=== PATIENT | male | born 1945 | race Caucasian/White ===

== ENCOUNTER 2023-05-21 08:22 | Emergency (ER) | payer OTHER, SELFPAY ==
[2023-05-21 08:24] VITALS: BP 162/90; PULSE 86; RESP 24; TEMP 36.6; O2SAT 94; BMI 23.7
--- NOTE | 2023-05-21 08:30 | XR_ITS ---
The [address] [address] Patient Name: ASIA ANGEL MRN: [id number] date: 1945 Sex: M Assigned Patient Location: ED.MAIN Current Patient Location: ED.MAIN Accession/Order Number: [id number] Exam Date: 05/21/2023 08:50 Report Date: 05/21/2023 09:31 At the request of: DANIEL ZIMMERMAN Procedure: XR chest 2V EXAM: CHEST 2 VIEWS HISTORY: sob TECHNIQUE: PA and lateral views chest. COMPARISON: None. FINDINGS: There is significant pleural-parenchymal thickening and scarring at the lung apices. There is left lung volume loss with cysts masslike consolidation at the left suprahilar region, and patchy opacities at the left lower lobe. Mild right basilar atelectasis. No dependent effusion. No pneumothorax. There is mild tracheomegaly with tortuous trachea. There is aortic atherosclerosis. Heart size within normal limits. XR/XR chest 2V IMPRESSION: 1. Significant biapical pleural-parenchymal thickening and scarring. Masslike left suprahilar consolidation could be from pneumonia but associated left lung volume loss suggests a fibrotic process. Underlying mass/neoplasm not excluded. There are no prior comparison studies. Correlate with patient's history. Follow-up chest contrast chest CT as clinically indicated. 2. Patchy pneumonitis at the left lower lobe. Electronically authenticated by: KENDELL ARNOLD Date: 05/21/2023 09:31
--- NOTE | 2023-05-21 08:34 | ED.GENADUL1 ---
HPI - General Adult General Chief complaint: Shortness of Breath/Dyspnea Stated complaint: GENERAL WEAKNESS Time Seen by Provider: 05/21/23 08:30 Source: patient Mode of arrival: ambulance Limitations: no limitations History of Present Illness HPI narrative: Patient is a Extremely pleasant 77-year-old male who is presenting to the Emergency Room by ambulance with chief complaint of shortness of breath this morning more than usual. Patient states every morning he wakes up he is a little short of breath, he felt more short of breath this morning. Patient has bilateral lung cancer. Patient has had 2 out of 3 globes taken out of his right lung, patient's left lung had chemotherapy and radiation. Patient has no fever or chills. No recent sick contacts. No Covid contacts. No recent traveling out of state or country last month or so. No dull pain, nausea or vomiting. Patient does not wear action at home and does not want to. Patient has chronic obstructive pulmonary disease history. Patient states he feels better at this time, patient only had oxygen applied by EMS staff. He does not wear action at home. He does have a albuterol aerosol machine at home. Patient states the shortness of breath slowly gotten worse this morning, since it was different than his normal, he came to the Emergency Room. PPatient has never been admitted to the hospital for chronic obstructive pulmonary disease her breathing issues since 2010 when he last had his lung surgery/chemotherapy/radiation. . All systems are negative except as noted/marked. All systems reviewed and otherwise negative. . Nurses note and vital signs reviewed and patient is not hypoxic. General: The patient appears well and in no apparent distress. Patient is resting comfortably on cart. Patient is not toxic, lethargic, or listless. Low BMI, para chest, Skin: Warm, dry, no pallor noted. There is no rash noted. No petechiae, purpura. Patient has several Band-Aids on his head, Patient just had a [facility], from small wound that is treating, no secondary signs of infection. Head: Normocephalic, atraumatic Eye: Normal conjunctiva, no drainage, EOMI. PERRL Ears, Nose, Mouth, and Throat: oral mucosa is moist. Nares patent. Mouth without vesicles. Cardiovascular: Regular Rate and Rhythm, no murmur, gallop, rub Respiratory: Patient is in no distress, no accessory muscle use, lungs are clear to auscultation, no wheezing, rales or rhonchi Back: non-tender, no CVA tenderness bilaterally to percussion. No CT LS midline pain GI: soft, no tenderness to palpation, no masses appreciated. No rebound, guarding, or rigidity noted. No flank pain bilateral, No distention Musculoskeletal: Patient has full range of motion of all of the extremities, no motor, sensory, or focal neurological deficits Neurological: A&O x3, normal speech Psychiatric: Cooperative Related Data Previous Rx's Medication Instructions Recorded prednisone 50 mg tablet 50 mg PO DAILY 3 days #3 tabs 05/21/23 Allergies Allergy/AdvReac Type Severity Reaction Status Date / Time No Known Drug Allergies Allergy Verified 05/21/23 08:29 PFSH [facility] Social History Smoking status: Former smoker Exam Constitutional Vital Signs, click to edit/add: Last Vital Signs Temp 97.8 F 05/21/23 08:24 Pulse 82 05/21/23 09:07 Resp 12 05/21/23 09:07 BP 162/90 H 05/21/23 08:24 Pulse Ox 98 05/21/23 09:07 O2 Del Method Nasal Cannula 05/21/23 09:07 O2 Flow Rate 1 05/21/23 09:07 Course Vital Signs Vital signs: Vital Signs Temperature 97.8 F 05/21/23 08:24 Pulse Rate 86 05/21/23 08:24 Respiratory Rate 24 05/21/23 08:24 Blood Pressure 162/90 H 05/21/23 08:24 Pulse Oximetry 94 L 05/21/23 08:24 Oxygen Delivery Method Room Air 05/21/23 08:24 Temperature 97.8 F 05/21/23 08:24 Pulse Rate 82 05/21/23 09:07 Respiratory Rate 12 05/21/23 09:07 Blood Pressure 162/90 H 05/21/23 08:24 Pulse Oximetry 98 05/21/23 09:07 Oxygen Delivery Method Nasal Cannula 05/21/23 09:07 Oxygen Delivery Flow Rate 1 05/21/23 09:07 Medical Decision Making MDM Narrative Medical decision making narrative: Patient feels much better with oxygen. Patient was also given a DuoNeb breathing treatment which helped him feel better as well. Patient was given a short prescription of prednisone, he will take the next dose tomorrow. Patient was given a copy of his x-ray report, patient has multiple possibilities radiology read by the radiologist on patient's x-ray report. He will use aerosol treatments every 4 hours while awake. Patient follow-up with PCP, no questions at discharge. I spent 10 minutes talking the patient at discharge discussing his lung cancer, treatments, patient was very nice very thankful for help today. Patient is aware to take his next dose of present is on tomorrow, along with his aerosols. Patient will [facility] with [facility] and [facility] specialist as needed. Patient just had CAT/PET scans done in the beginning of March on his lungs, and they found nothing new, he is not concerned about the x-ray report were discussed at bedside. Lab Data Lab results reviewed: Yes I reviewed the patient's lab results Labs: Lab Results 05/21/23 05/21/23 Range/Units 08:35 09:06 WBC 8.5 (4.0-11.0) 10^3/uL RBC 4.36 L (4.70-6.10) 10^6/uL Hgb 13.5 L (14.0-18.0) g/dL Hct 40.3 L (42.0-54.0) % MCV 92.4 (80.0-94.0) fL MCH 31.0 (25.9-34.0) pg MCHC 33.5 (29.9-35.2) g/dL RDW 13.3 (11.0-15.0) % Plt Count 218 (150-450) 10^3/uL MPV 8.2 L (9.5-13.5) fL Seg Neuts % (Manual) 90.0 Lymphocytes % (Manual) 5.0 L (20.5-60.0) % Monocytes % (Manual) 4.0 (1.7-12.0) % Eosinophils % (Manual) 1.0 (0.9-7.0) % Basophils % (Manual) 0.0 L (0.2-2.0) % Neutrophils # (Manual) 7.65 H (1.4-6.5) 10^3/uL Lymphocytes # (Manual) 0.42 L (1.20-3.80) 10^3/uL Monocytes # (Manual) 0.34 (0.30-0.80) 10^3/uL Eosinophils # (Manual) 0.08 (0.00-0.70) 10^3/uL Basophils # (Manual) 0.00 (0.00-0.10) 10^3/uL Sodium 136 (136-145) mmol/L Potassium 4.3 (3.5-5.1) mmol/L Chloride 102 (98-107) mmol/L Carbon Dioxide 25.9 (21.0-32.0) mmol/L Anion Gap 12.4 BUN 21.0 H (7.0-18.0) mg/dL Creatinine 1.58 H (0.70-1.30) mg/dL Est GFR ( Amer) 52 L (>=60) Est GFR (Non-Af Amer) 43 L (>=60) BUN/Creatinine Ratio 13.3 Glucose 96 (74-106) mg/dL Calcium 9.5 (8.5-10.1) mg/dL Troponin I High Sens 20.6 (4.0-76.1) pg/mL NT-Pro-B Natriuret Pep 2285.0 H* (<=1800.0) pg/mL SARS-CoV-2 (PCR) Negative (NEGATIVE) ECG Data Attestation: I personally reviewed and interpreted this ECG as follows: (EKG interpretation. Normal sinus rhythm at 87 beats a minute. Artifact noted. Normal axis deviation. No acute ST elevation, no acute ectopy. QTC of 422.) Discharge Plan Discharge Chief Complaint: Shortness of Breath/Dyspnea Clinical Impression: Dyspnea, COPD (chronic obstructive pulmonary disease) Patient Disposition: Home, Self-Care Condition: Fair Prescriptions / Home Meds: New prednisone 50 mg tablet 50 mg PO DAILY 3 Days Qty: 3 0RF Instructions: COPD (Chronic Obstructive Pulmonary Disease) (ED), Dyspnea (ED) Additional Instructions: X-ray report was given 2. 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 Use your aerosol machine every 4 hours while awake today. Take your next dose of prednisone tomorrow. Any acute concerns or significant shortness of breath or any other acute concerns return to Emergency Room. Stand Alone Forms: Portal Instructions Referrals: Physician,Non-Staff, MD [Primary Care Provider] - 1 week
[2023-05-21 08:57] LABS: Hematocrit 40.3 % (42.0-54.0); Hemoglobin 13.5 g/dL (14.0-18.0); Mean Corpuscular HGB Conc 33.5 g/dL (29.9-35.2); Mean Corpuscular Volume 92.4 fL (80.0-94.0); Mean Platelet Volume 8.2 fL (9.5-13.5); Platelet Count 218 10^3/uL (150-450); Red Blood Count 4.36 10^6/uL (4.70-6.10); White Blood Count 8.5 10^3/uL (4.0-11.0)
[2023-05-21 09:00] LABS: Red Cell Distribution Width 13.3 % (11.0-15.0)
[2023-05-21] MEDS: IPRATROPIUM/ALBUTEROL SULFATE 3 ML AMPUL.NEB IH (09:05)
[2023-05-21 09:07] VITALS: PULSE 82; RESP 12; O2SAT 98
--- NOTE | 2023-05-21 09:08 | RESP.RT ---
placed on room air
[2023-05-21] MEDS: METHYLPREDNISOLONE SOD SUCC PF 125 MG/2 ML VIAL IVP (09:17)
[2023-05-21 09:22] LABS: Anion Gap 12.4; BUN Creatinine Ratio 13.3; Calcium 9.5 mg/dL (8.5-10.1); Carbon Dioxide 25.9 mmol/L (21.0-32.0); Chloride 102 mmol/L (98-107); Estimated GFR (African America 52 (>=60); Estimated GFR (Non-African Ame 43 (>=60); Glucose 96 mg/dL (74-106); Potassium 4.3 mmol/L (3.5-5.1); Sodium 136 mmol/L (136-145); Troponin I High Sensitivity 20.6 pg/mL (4.0-76.1)
[2023-05-21 09:30] LABS: Eosinophils Absolute Manual 0.08 10^3/uL (0.00-0.70); Lymphocytes Absolute Manual 0.42 10^3/uL (1.20-3.80); Monocytes Absolute Manual 0.34 10^3/uL (0.30-0.80); Segmented Neut Absolute Manual 7.65 10^3/uL (1.4-6.5)
[2023-05-21 09:34] LABS: SARS-CoV-2 Ag NEGATIVE (NEGATIVE)
--- NOTE | 2023-05-21 10:00 | ECG_ITS ---
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
--- NOTE | 2023-05-21 10:10 | PC.NURSE ---
walk study completed without oxygen at this time SpO2 remains at 96%. dr hicks informed
[2023-05-21 15:59] LABS: SARS-CoV-2 NAA NOT DETECTED (NOT DETECTE)
== END 2023-05-21 11:13 | disposition home or self-care (01) ==
PROVIDERS: Emergency Provider Emergency Medicine
DX: R06.00 Dyspnea, unspecified (principal); J44.9 Chronic obstructive pulmonary disease, unspecified; Z90.2 Acquired absence of lung [part of]; Z85.828 Personal history of other malignant neoplasm of skin; Z87.891 Personal history of nicotine dependence; Z85.118 Personal history of other malignant neoplasm of bronchus and lung; Z20.822 Contact with and (suspected) exposure to COVID-19
CPT/HCPCS: 36415; 71046; 80048; 83880; 84484; 85027; 87635; 87811; 93005; 94640; 96374; 99285; J2930

== ENCOUNTER 2023-07-20 13:15 | Emergency (ER) | payer OTHER, SELFPAY ==
[2023-07-20] VITALS (39 sets, daily range): BP systolic 147; BP diastolic 89; PULSE 60–113; RESP 20; TEMP 36.9; O2SAT 91–100; BMI 21.8
--- NOTE | 2023-07-20 13:17 | ED_ITS ---
HPI - General Adult General Chief complaint: Shortness of Breath/Dyspnea Stated complaint: URTI/ GENERAL WEAKNESS Time Seen by Provider: 07/20/23 13:15 History of Present Illness HPI narrative: Patient is an 78-year-old male with a remote history of lung cancer who is currently be treated [facility], presents to the ER for several week history of weakness, cough and congestion, general malaise. He denies fevers, chest pain. No sputum production, vomiting. He was placed on oxygen by EMS with improvement and states he was given something for nausea. He states he is not able to see his [facility] doctor for another week which prompted him to call 911 and come to the ER. He has a history of multiple lobectomy to the right lung, he believes the right middle and right lower lobes. He was seen in this emergency department for similar symptoms at the end of April of this year. He had a chest x-ray with multiple abnormal findings, he was not able to follow-up with the [facility] as he states they could not get him in. He is not currently being treated for any pulmonary conditions. Related Data Previous Rx's Medication Instructions Recorded prednisone 50 mg tablet 50 mg PO DAILY 3 days #3 tabs 05/21/23 Allergies Allergy/AdvReac Type Severity Reaction Status Date / Time No Known Drug Allergies Allergy Verified 05/21/23 08:29 Review of Systems ROS Constitutional Denies: fever or chills Ears, nose, mouth, and throat Reports: nasal congestion; Denies: throat pain Cardiovascular Denies: chest pain Respiratory Reports: shortness of breath and cough Gastrointestinal Reports: nausea; Denies: vomiting or diarrhea Genitourinary Denies: painful urination Musculoskeletal Denies: back pain Integumentary/Breast Denies: rash Neurological Denies: headache Endocrine Denies: excessive urination PFSH PFSH Social History Smoking status: Former smoker Exam Narrative Exam Narrative: Gen.: Awake, alert, in no distress Head: Normocephalic, atraumatic ENT: Moist mucous membranes Respiratory: No respiratory distress, diminished lung sounds in the right upper and middle lobes, no wheezing noted Cardio: Regular rate and rhythm Extremities: Moves extremities equally, no pedal edema Psych: Normal mood and affect Neuro: No focal neuro deficit Skin: Warm, dry, intact Constitutional Vital Signs, click to edit/add: Last Vital Signs Temp 98.4 F 07/20/23 13:15 Pulse 113 H 07/20/23 13:15 Resp 20 07/20/23 13:15 BP 147/89 H 07/20/23 13:15 Pulse Ox 98 07/20/23 13:15 O2 Del Method Nasal Cannula 07/20/23 13:15 O2 Flow Rate 2 07/20/23 13:15 Course Vital Signs Vital signs: Vital Signs Temperature 98.4 F 07/20/23 13:15 Pulse Rate 113 H 07/20/23 13:15 Respiratory Rate 20 07/20/23 13:15 Blood Pressure 147/89 H 07/20/23 13:15 Pulse Oximetry 98 07/20/23 13:15 Oxygen Delivery Method Nasal Cannula 07/20/23 13:15 Oxygen Delivery Flow Rate 2 07/20/23 13:15 Temperature 98.4 F 07/20/23 13:15 Pulse Rate 113 H 07/20/23 13:15 Respiratory Rate 20 07/20/23 13:15 Blood Pressure 147/89 H 07/20/23 13:15 Pulse Oximetry 98 07/20/23 13:15 Oxygen Delivery Method Nasal Cannula 07/20/23 13:15 Oxygen Delivery Flow Rate 2 07/20/23 13:15 Medical Decision Making MDM Narrative Medical decision making narrative: Patient found to have elevated troponin and BNP. Clinically he does not have any evidence of peripheral edema. He was sent for CT angio of the chest which has multiple abnormalities consistent with pulmonary artery stenosis, multiple areas of suspected metastasis. Based on elevated troponin and 3 weeks of symptoms, patient will require transfer to tertiary care facility for non-STEMI. Patient treated with heparin bolus and drip, reevaluated by attending physician and he is agreeable to transfer to [facility]. Patient accepted by hospitalist. Stable at this time. Critical care time 35 minutes Medical Records Medical records reviewed: Yes I reviewed the patient's medical records Lab Data Lab results reviewed: Yes I reviewed the patient's lab results Labs: Lab Results 07/20/23 07/20/23 Range/Units 13:44 15:48 WBC 11.7 H (4.0-11.0) 10^3/uL RBC 4.11 L (4.70-6.10) 10^6/uL Hgb 12.9 L (14.0-18.0) g/dL Hct 37.2 L (42.0-54.0) % MCV 90.5 (80.0-94.0) fL MCH 31.4 (25.9-34.0) pg MCHC 34.7 (29.9-35.2) g/dL RDW 13.1 (11.0-15.0) % Plt Count 223 (150-450) 10^3/uL MPV 8.7 L (9.5-13.5) fL Neut % (Auto) 81.4 H (43.0-75.0) % Lymph % (Auto) 8.2 L (20.5-60.0) % [place] % (Auto) 8.4 (1.7-12.0) % Eos % (Auto) 0.9 (0.9-7.0) % Baso % (Auto) 0.8 (0.2-2.0) % Neut # (Auto) 9.5 H (1.4-6.5) 10^3/uL Lymph # (Auto) 1.0 L (1.2-3.8) 10^3/uL [place] # (Auto) 1.0 H (0.3-0.8) 10^3/uL Eos # (Auto) 0.1 (0.0-0.7) 10^3/uL Baso # (Auto) 0.1 (0.0-0.1) 10^3/uL Abs Immat Gran (auto) 0.04 H (0.00-0.03) 10^3/uL Imm/Tot Granulo (auto) 0.3 (0.0-0.5) % PT 11.4 (9.0-11.6) sec INR 1.08 APTT 33.8 (22.3-36.2) sec VBG pH 7.463 H (7.330-7.430) VBG pCO2 36.5 L (40.0-52.0) mmHg Sodium 135 L (136-145) mmol/L Potassium 3.6 (3.5-5.1) mmol/L Chloride 99 (98-107) mmol/L Carbon Dioxide 24.5 (21.0-32.0) mmol/L Anion Gap 15.1 BUN 25.0 H (7.0-18.0) mg/dL Creatinine 1.58 H (0.70-1.30) mg/dL Est GFR ( Amer) 52 L (>=60) Est GFR (Non-Af Amer) 43 L (>=60) BUN/Creatinine Ratio 15.8 Glucose 102 (74-106) mg/dL Calcium 10.3 H (8.5-10.1) mg/dL Total Bilirubin 0.9 (0.2-1.0) mg/dL AST 15 (15-37) U/L ALT 16 (16-63) U/L Alkaline Phosphatase 74 (46-116) U/L Troponin I High Sens 208.9 H* 225.8 H* (4.0-76.1) pg/mL NT-Pro-B Natriuret Pep 94747.0 H* (<=1800.0) pg/mL Total Protein 6.4 (6.4-8.2) g/dL Albumin 2.8 L (3.4-5.0) g/dL Globulin 3.6 g/dL Albumin/Globulin Ratio 0.[address] scan - chest: Attestation: I have reviewed the pertinent imaging results. Radiologist's impression: Procedure: CT angio chest EXAM: CT angio chest 07/20/2023. TECHNIQUE: 3 mm sections were obtained from the thoracic inlet through the diaphragm following administration of intravenous contrast. Coronal and sagittal reconstructed images were also obtained. HISTORY: Weakness, abnormal CXR COMPARISON: None. FINDINGS: The gallbladder is surgically absent. Nodular thickened appearance of the right adrenal body with transverse width of 13 mm with attenuation measurement of 2 Hounsfield units noted. Upper abdominal contents demonstrate no acute abnormality. Thyroid is atrophic. High riding aortic arch with pseudocoarctation pattern noted. Significant atherosclerotic change of aorta without aneurysm or dissection. Mid ascending segment is ectatic with measurement of 3.6 x 4.0 cm. Cardiomegaly with coronary artery calcifications in a triple-vessel distribution. Nonenlarged and abnormally enlarged intrathoracic nodes are evident. An azygos station node for example measures 14 x 21 mm, image 19. Medially located right infrahilar node, image 35 for example measures 18 x 23 mm. A node just lateral to this on the same image measures 1.6 x 2.1 cm. An upper right paratracheal node for example has short axis measurement of 10 mm. Right apical pleural parenchymal fibrotic changes are noted. Moderate upper lobe predominant emphysematous changes are present. There is chronic thickening of the lateral right pleura which appears discontinuous. Posteriorly the pleural thickening is partially calcified with AP thickness of at least 8 mm. There is fusiform-shaped collection of fluid loculated along the mid to distal aspect of the left oblique fissure. On sagittal imaging this measures at least 4.0 x 8.7 cm. The segmental/subsegmental pulmonary arterial branches within the left upper lobe and superior segment left lower lobe are somewhat attenuated. Prior right upper lobe resection. No convincing evidence of an acute pulmonary embolus. A right-sided juxta esophageal node within the posterior mediastinum versus pleural metastasis, image 46 measures 9 x 16 mm. Mild circumferential thickened appearance of the distal esophagus is noted. To the right of the esophagus is a similar-appearing focus measuring 1.3 x 1.4 cm. There is linear high attenuation radiopaque material versus calcification along the posterior wall of the proximal gastric lumen measuring 19 mm anterior to posterior. There is minimal aeration of the apical posterior segment of the left upper lobe. Caudal to this are dense consolidative changes replacing the left upper lobe and superior segment left lower lobe with extension caudally into the lingula. Underlying air bronchograms are noted. There are scattered noncalcified left-sided pulmonary nodules. A few of the nodules will be indexed as follows: A nodule located medially within the superior segment left lower lobe for example on image 32 measures 9 mm anterior to posterior. Caudal to this a subpleural focus posteriorly, image 42 measures 9 x 13 mm. A subpleural nodule for example medially within the left lower lobe on image #63 measures 10 mm. There is concern for mucous plugging involving segmental and subsegmental bronchi within the dependent aspect of the right lower lobe. There are right-sided nodules also noted. One for example located laterally involving the right lower lobe measures 1.3 x 1.7 cm. A medially located right lower lobe nodule on image #53 for example measures 1.0 x 1.4 cm. A subpleural lesion with ill-defined margins involving right lower lobe laterally for example has transverse width of 17 mm. Mild thoracic kyphosis. Subtle elevation of periosteum with sclerosis involving posterior right third through fifth ribs are identified. Old healed left lateral third and fourth as well as involving the lateral fifth through seventh ribs noted. There is abnormal sclerosis with elevation of periosteum involving the posterior left third through seventh ribs as well as old healed 12th rib fracture deformity partially visualized. IMPRESSION: 1. Atherosclerotic change of the aorta without dissection. Mid ascending thoracic segment is mildly ectatic at 4.0 cm. 2. Prior right upper and middle lobe resection with post thoracotomy changes involving the right posterior ribs noted. Mild chronic apical fibrotic changes as well as mild chronic partially calcified thickening of the pleura posteriorly noted. 3. Concern for severe underlying pulmonary arterial stenoses involving segmental/subsegmental branches within the left upper lobe consolidation. No convincing evidence of an acute pulmonary embolus. 4. 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 5. There are numerous noncalcified nodules throughout the hyperinflated right lower lobe as well as involving lingula and left lower lobe presumably related to metastatic disease. Both pulmonary and pleural metastases are suspected. 6. Moderate background emphysematous changes are noted. 7. There is mucous plugging associated with segmental and subsegmental bronchi within caudal aspect of the right lower lobe and left lower lobe. Correlate for aspiration risk. 8. Indeterminate right adrenal nodule, presumably related to adenoma. Prior cholecystectomy. 9. Atherosclerosis with elevation of periosteum involving multiple posterior bilateral ribs presumably from posttreatment change. Post radiation induced mid to distal esophagitis may also be present. Cardiomegaly. Electronically authenticated by: GONZALO FERREIRA Date: 07/20/2023 16:09 Discharge Plan Discharge Chief Complaint: Shortness of Breath/Dyspnea Clinical Impression: Dyspnea, Non-ST elevated myocardial infarction (non-STEMI) Patient Disposition: [facility] Time of Disposition Decision: 16:21 Discharge Location: [facility]
--- NOTE | 2023-07-20 13:23 | ECG_ITS ---
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
--- NOTE | 2023-07-20 13:24 | CT_ITS ---
The [address] [address] Patient Name: ASIA ANGEL MRN: [id number] date: 1945 Sex: M Assigned Patient Location: ER Current Patient Location: ER Accession/Order Number: [id number] Exam Date: 07/20/2023 14:32 Report Date: 07/20/2023 16:09 At the request of: MALENA TIWARI Procedure: CT angio chest EXAM: CT angio chest 07/20/2023. TECHNIQUE: 3 mm sections were obtained from the thoracic inlet through the diaphragm following administration of intravenous contrast. Coronal and sagittal reconstructed images were also obtained. HISTORY: Weakness, abnormal CXR COMPARISON: None. FINDINGS: The gallbladder is surgically absent. Nodular thickened appearance of the right adrenal body with transverse width of 13 mm with attenuation measurement of 2 Hounsfield units noted. Upper abdominal contents demonstrate no acute abnormality. Thyroid is atrophic. High riding aortic arch with pseudocoarctation pattern noted. Significant atherosclerotic change of aorta without aneurysm or dissection. Mid ascending segment is ectatic with measurement of 3.6 x 4.0 cm. Cardiomegaly with coronary artery calcifications in a triple-vessel distribution. Nonenlarged and abnormally enlarged intrathoracic nodes are evident. An azygos station node for example measures 14 x 21 mm, image 19. Medially located right infrahilar node, image 35 for example measures 18 x 23 mm. A node just lateral to this on the same image measures 1.6 x 2.1 cm. An upper right paratracheal node for example has short axis measurement of 10 mm. Right apical pleural parenchymal fibrotic changes are noted. Moderate upper lobe predominant emphysematous changes are present. There is chronic thickening of the lateral right pleura which appears discontinuous. Posteriorly the pleural thickening is partially calcified with AP thickness of at least 8 mm. There is fusiform-shaped collection of fluid loculated along the mid to distal aspect of the left oblique fissure. On sagittal imaging this measures at least 4.0 x 8.7 cm. The segmental/subsegmental pulmonary arterial branches within the left upper lobe and superior segment left lower lobe are somewhat attenuated. Prior right upper lobe resection. No convincing evidence of an acute pulmonary embolus. A right-sided juxta esophageal node within the posterior mediastinum versus pleural metastasis, image 46 measures 9 x 16 mm. Mild circumferential thickened appearance of the distal esophagus is noted. To the right of the esophagus is a similar-appearing focus measuring 1.3 x 1.4 cm. There is linear high attenuation radiopaque material versus calcification along the posterior wall of the proximal gastric lumen measuring 19 mm anterior to posterior. There is minimal aeration of the apical posterior segment of the left upper lobe. Caudal to this are dense consolidative changes replacing the left upper lobe and superior segment left lower lobe with extension caudally into the lingula. Underlying air bronchograms are noted. There are scattered noncalcified left-sided pulmonary nodules. A few of the nodules will be indexed as follows: A nodule located medially within the superior segment left lower lobe for example on image 32 measures 9 mm anterior to posterior. Caudal to this a subpleural focus posteriorly, image 42 measures 9 x 13 mm. A subpleural nodule for example medially within the left lower lobe on image #63 measures 10 mm. There is concern for mucous plugging involving segmental and subsegmental bronchi within the dependent aspect of the right lower lobe. There are right-sided nodules also noted. One for example located laterally involving the right lower lobe measures 1.3 x 1.7 cm. A medially located right lower lobe nodule on image #53 for example measures 1.0 x 1.4 cm. A subpleural lesion with ill-defined margins involving right lower lobe laterally for example has transverse width of 17 mm. Mild thoracic kyphosis. Subtle elevation of periosteum with sclerosis involving posterior right third through fifth ribs are identified. Old healed left lateral third and fourth as well as involving the lateral fifth through seventh ribs noted. There is abnormal sclerosis with elevation of periosteum involving the posterior left third through seventh ribs as well as old healed 12th rib fracture deformity partially visualized. CT/CT angio chest IMPRESSION: 1. Atherosclerotic change of the aorta without dissection. Mid ascending thoracic segment is mildly ectatic at 4.0 cm. 2. Prior right upper and middle lobe resection with post thoracotomy changes involving the right posterior ribs noted. Mild chronic apical fibrotic changes as well as mild chronic partially calcified thickening of the pleura posteriorly noted. 3. Concern for severe underlying pulmonary arterial stenoses involving segmental/subsegmental branches within the left upper lobe consolidation. No convincing evidence of an acute pulmonary embolus. 4. 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 5. There are numerous noncalcified nodules throughout the hyperinflated right lower lobe as well as involving lingula and left lower lobe presumably related to metastatic disease. Both pulmonary and pleural metastases are suspected. 6. Moderate background emphysematous changes are noted. 7. There is mucous plugging associated with segmental and subsegmental bronchi within caudal aspect of the right lower lobe and left lower lobe. Correlate for aspiration risk. 8. Indeterminate right adrenal nodule, presumably related to adenoma. Prior cholecystectomy. 9. Atherosclerosis with elevation of periosteum involving multiple posterior bilateral ribs presumably from posttreatment change. Post radiation induced mid to distal esophagitis may also be present. Cardiomegaly. Electronically authenticated by: GONZALO FERREIRA Date: 07/20/2023 16:09
[2023-07-20] MEDS: 0.9 % SODIUM CHLORIDE 1,000 ML 1000 ML IV (13:46)
[2023-07-20 13:56] LABS: Basophils Absolute Auto 0.1 10^3/uL (0.0-0.1); Basophils Percent Auto 0.8 % (0.2-2.0); Eosinophils Absolute Auto 0.1 10^3/uL (0.0-0.7); Eosinophils Percent Auto 0.9 % (0.9-7.0); Hematocrit 37.2 % (42.0-54.0); Hemoglobin 12.9 g/dL (14.0-18.0); Immature Granulocytes Abs Auto 0.04 10^3/uL (0.00-0.03); Immature Granulocytes Pct Auto 0.3 % (0.0-0.5); Lymphocytes Percent Auto 8.2 % (20.5-60.0); Mean Corpuscular HGB Conc 34.7 g/dL (29.9-35.2); Mean Corpuscular Hemoglobin 31.4 pg (25.9-34.0); Mean Corpuscular Volume 90.5 fL (80.0-94.0); Mean Platelet Volume 8.7 fL (9.5-13.5); Monocytes Percent Auto 8.4 % (1.7-12.0); Neutrophils Absolute Auto 9.5 10^3/uL (1.4-6.5); Neutrophils Percent Auto 81.4 % (43.0-75.0); Platelet Count 223 10^3/uL (150-450); Red Blood Count 4.11 10^6/uL (4.70-6.10); Red Cell Distribution Width 13.1 % (11.0-15.0); White Blood Count 11.7 10^3/uL (4.0-11.0)
[2023-07-20 13:59] LABS: PCO2 VBG 36.5 mmHg (40.0-52.0); pH VBG 7.463 (7.330-7.430)
[2023-07-20 14:13] LABS: INR 1.08; Partial Thromboplastin Time 33.8 sec (22.3-36.2); Prothrombin Time 11.4 sec (9.0-11.6)
[2023-07-20 14:18] LABS: Alanine Aminotransferase 16 U/L (16-63); Albumin Globulin Ratio 0.8; Albumin Level 2.8 g/dL (3.4-5.0); Alkaline Phosphatase 74 U/L (46-116); Anion Gap 15.1; Aspartate Amino Transferase 15 U/L (15-37); BUN Creatinine Ratio 15.8; Bilirubin Total 0.9 mg/dL (0.2-1.0); Calcium 10.3 mg/dL (8.5-10.1); Carbon Dioxide 24.5 mmol/L (21.0-32.0); Chloride 99 mmol/L (98-107); Estimated GFR (African America 52 (>=60); Estimated GFR (Non-African Ame 43 (>=60); Globulin 3.6 g/dL; Glucose 102 mg/dL (74-106); Potassium 3.6 mmol/L (3.5-5.1); Sodium 135 mmol/L (136-145); Total Protein 6.4 g/dL (6.4-8.2)
[2023-07-20 14:20] LABS: Troponin I High Sensitivity 208.9 pg/mL (4.0-76.1)
[2023-07-20] MEDS: HEPARIN SODIUM,PORCINE/D5W 25,000 UNIT/500 ML IV.SOLN 14 UNIT IV (15:23)
[2023-07-20] MEDS: HEPARIN SODIUM (PORCINE) 5,000 UNIT/ML VIAL 2400 UNIT IV (15:24)
[2023-07-20 16:13] LABS: Troponin I High Sensitivity 225.8 pg/mL (4.0-76.1)
[2023-07-20] MEDS: ONDANSETRON PF 4 MG/2 ML VIAL IV (16:43)
== END 2023-07-20 19:33 | disposition short-term general hospital (02) ==
PROVIDERS: Physician Assistant; Emergency Provider Emergency Medicine
DX: I21.4 Non-ST elevation (NSTEMI) myocardial infarction (principal); R06.02 Shortness of breath; Z85.118 Personal history of other malignant neoplasm of bronchus and lung; R06.00 Dyspnea, unspecified; C44.90 Unspecified malignant neoplasm of skin, unspecified; Z90.2 Acquired absence of lung [part of]; Z87.891 Personal history of nicotine dependence; Q25.6 Stenosis of pulmonary artery; Z90.49 Acquired absence of other specified parts of digestive tract
CPT/HCPCS: 36415; 71275; 80053; 82800; 83880; 84484; 85025; 85610; 85730; 87040; 93005; 96374; 96375; 99285; Q9966